=== PATIENT | male | born 1995 | race Caucasian/White ===

== ENCOUNTER 2020-02-13 15:53 | Emergency (ER) | payer OTHER ==
[~2020-02-13] VITALS: Ht 175.3 cm; Wt 75.7 kg
[2020-02-13 16:03] VITALS: BP 137/67
--- NOTE | 2020-02-13 16:04 | NUR ---
ED Nurse Note: pt walked in from home due to Lt ankle pain 06/28 x2 days since she sprained Lt ankle while walking. pt aao x4 but drowsiness noted. pt ambulatory but limping due to Lt ankle pain. calm and cooperative. skin clean and intact. no cardiac or pulmonary distress noted at this time.
--- NOTE | 2020-02-13 16:06 | NUR ---
ED Nurse Note: ERMD at bedside.
[2020-02-13] MEDS ORDERED: ROBAXIN-750750 MG PO (16:11)
[2020-02-13] MEDS ORDERED: TYLENOL325 MG ORAL (16:11)
[2020-02-13] MEDS ORDERED: IBUPROFEN600 MG ORAL (16:11)
--- NOTE | 2020-02-13 16:11 | Emergency Room Report ---
History of Present Illness General Chief Complaint: Pain Source: Patient Present Illness HPI 24-year-old male presents with left leg pain and numbness neuropathic in nature aggravated when he slept on it funny for the past day relieving factors when he starts walking around severity is mild, intermittent, patient reports that he took some opioids a few days ago and now he slept on his leg funny and he feels numbness and tingling Allergies: Coded Allergies: AMOXICILLIN (Verified Allergy, Unknown, Rash, 02/13/20) PENICILLINS (Verified Allergy, Unknown, Rash, 02/13/20) COVID-19 Screening Contact w/high risk pt: No Recent Travel to affected area: No Experienced COVID-19 symptoms?: No Patient History Past Medical History: see triage record Social History: Reports: smoking, alcohol use, drug use - opioid abuse Reviewed Nursing Documentation: PMH: Agreed; PSxH: Agreed Nursing Documentation-PMH Past Medical History: No History, Except For Review of Systems All Other Systems: negative except mentioned in HPI Physical Exam Vital Signs Date Time Temp Pulse Resp B/P (MAP) Pulse Ox O2 Delivery O2 Flow Rate FiO2 02/13/20 15:56 98.1 103 18 137/67 (90) 96 Room Air General Appearance: well appearing, no apparent distress Head: normocephalic, atraumatic ENT: hearing grossly normal, normal voice Neck: full range of motion, supple Respiratory: no respiratory distress, speaking full sentences Musculoskeletal: other - Left lower extremity: 4/5 strength plantar flexion at the ankle, 5/5 strength dorsiflexion of the ankle, 5/5 strength knee flexion extension, patient able to ambulate, sensation mildly reduced around ankle Neurologic: alert, normal gait Psychiatric: mood/affect normal Skin: no rash Medical Decision Making Diagnostic Impression: Primary Impression: Neuropathy Additional Impression: Palsy of left sciatic nerve ER Course 24-year-old male presents most likely with neuropathy after sleeping on the leg awkwardly, similar to a Sunday night palsy with radial nerve impingement, patient most likely with a sciatic nerve impingement, patient without any red flags, anticipate recovery in a few days to a week, strict return precautions were discussed, pain regimen provided Last Vital Signs Date Time Temp Pulse Resp B/P (MAP) Pulse Ox O2 Delivery O2 Flow Rate FiO2 02/13/20 16:03 98.1 74 18 137/67 96 Room Air Disposition: HOME, SELF-CARE Condition: Stable Scripts Acetaminophen (Tylenol) 325 Mg Tablet 650 MG ORAL Q6H PRN for Prn Pain/Headache/Temp > 101, #30 TAB 0 Refills Prov: Bassam Paz MD 02/13/20 Methocarbamol* (ROBAXIN-750*) 750 Mg Tablet 750 MG PO QID, #28 TAB 0 Refills Prov: Bassam Paz MD 02/13/20 Ibuprofen* (MOTRIN*) 600 Mg Tablet 600 MG ORAL Q8H PRN for For Pain, #30 TAB 0 Refills Prov: Bassam Paz MD 02/13/20 Referrals: [facility] Jarek Khanna. [facility] Patient Instructions: Peripheral Neuropathy, Radial Nerve Palsy Additional Instructions: The patient was provided with discharge instructions, notified to follow-up with a primary care doctor and or specialist in the next 24-48 hours, and to return to the ED if they have worsening of their symptoms. Please note that this report is being documented using tok tok tok technology. This can lead to erroneous entry secondary to incorrect interpretation by the dictating instrument. Bassam Paz MD Feb 13, 2020 16:11
[2020-02-13] MEDS ORDERED: Ketorolac 30mg Inj IM ONE (16:15)
[2020-02-13] MEDS ORDERED: Methocarbamol 750mg tab ORAL ONE (16:15)
[2020-02-13] MEDS ORDERED: Acetaminophen 500mg (ES) tab ORAL ONE (16:15)
[2020-02-13 16:24] VITALS: BP 122/61
--- NOTE | 2020-02-13 16:24 | NUR ---
ED Nurse Note: Pt cleared by health care Provider for discharge. Patient provided pain medication to PO and IM both. DC instructions/prescription was given and explained to pt and verbalized understanding of teachings. All medical deviecs such as ID band removed. Pt is AAO x4, ambulatory and left with all personal belongings.
== END 2020-02-13 16:24 | disposition home or self-care (01) ==
LOC: EMR 16:08
DX: G62.9 Polyneuropathy, unspecified (principal); G58.8 Other specified mononeuropathies; Z88.0 Allergy status to penicillin
CPT/HCPCS: 96372; 99283; J1885